=== PATIENT | male | born 1960 | race Caucasian/White ===

== ENCOUNTER → 2017-08-28 | Outpatient (CLI) | payer OTHER ==
[2017-08-28 10:15] VITALS: BP 140/83
[2017-08-28 10:23] LABS: URINE APPEARANCE CLOUDY; URINE COLOR DARK YELLOW
[2017-08-28 10:24] LABS: URINE BILIRUBIN NEGATIVE (NEGATIVE); URINE BLOOD TRACE (NEGATIVE); URINE GLUCOSE NEGATIVE (NEGATIVE); URINE KETONE 1+ (NEGATIVE); URINE LEUKOCYTE ESTERASE NEGATIVE (NEGATIVE); URINE MUCUS PRESENT (NOT PRESENT); URINE NITRATE NEGATIVE (NEGATIVE); URINE PROTEIN(semi-quant) 2+ mg/dL (NEGATIVE); URINE UROBILINOGEN NORMAL (NORMAL)
== END ==
LOC: LAB 09:31
PROVIDERS: Nurse Practitioner Family
DX: R30.0 Dysuria (principal); R09.89 Other specified symptoms and signs involving the circulatory and respiratory systems

== ENCOUNTER → 2017-08-28 | Outpatient (CLI) | payer OTHER ==
[~2017-08-28] VITALS: Ht 157.5 cm; Wt 72.7 kg
[2017-08-28 10:15] VITALS: BP 140/83
[2017-08-28 11:42] VITALS: BP 125/85
== END ==
LOC: AMSURD 10:19
DX: J11.1 Influenza due to unidentified influenza virus with other respiratory manifestations (principal)
CPT/HCPCS: J2405; J7030

== ENCOUNTER 2017-12-28 11:23 | Emergency (ER) | payer SELFPAY ==
[~2017-12-28] VITALS: Ht 157.5 cm; Wt 75.0 kg
[2017-12-28 11:54] LABS: EOS # 0.3 (0.04-0.40); EOS % 2.8 % (0.0-4.0); HEMATOCRIT 45.1 % (42.0-52.0); HEMOGLOBIN 15.6 g/dL (13.5-18.0); LYMPH# 1.9 (1.50-4.00); MEAN CELL VOLUME 93 fl (78-100); MEAN CORPUSCULAR HEMOGLOBIN 32 pg (27-31); MEAN CORPUSCULAR HGB CONC 35 g/dL (33-37); MONO # 1.3 (0.20-0.80); NEU # 7.5 (1.40-6.50); PLATELET COUNT 176 K/mm3 (130-400); RED BLOOD COUNT 4.84 M/mm3 (4.20-5.60); RED CELL DISTRIBUTION WIDTH 13.3 % (11.5-14.5)
[2017-12-28] MEDS ORDERED: CLEOCIN HC150 MG/CAP PO (13:46)
[2017-12-28] MEDS ORDERED: NORCO 325 MG-51 TA1 PO (13:46)
[2017-12-28 14:08] VITALS: BP 122/64
== END 2017-12-28 14:05 | disposition home or self-care (01) ==
LOC: ED 11:23
PROVIDERS: Family Medicine
DX: T78.3XXA Angioneurotic edema, initial encounter (principal); K04.7 Periapical abscess without sinus; K05.10 Chronic gingivitis, plaque induced; F17.200 Nicotine dependence, unspecified, uncomplicated

== ENCOUNTER → 2020-06-23 | Outpatient (CLI) | payer SELFPAY ==
[~2020-06-23] MED LIST: CLEOCIN HC150 MG/CAP PO; NORCO 325 MG-51 TA1 PO
== END ==
LOC: LAB 09:15
DX: J02.9 Acute pharyngitis, unspecified (principal); M79.10 Myalgia, unspecified site; R09.81 Nasal congestion; Z20.828 Contact with and (suspected) exposure to other viral communicable diseases

== ENCOUNTER 2021-02-14 14:32 | Emergency (ER) | payer OTHER ==
[~2021-02-14 14:32] MED LIST changes: -MOBIC15 M1 PO; -ZYRTEC10 M3 PO
[2021-02-14] MEDS ORDERED: ZYRTEC10 M3 PO (15:42)
[2021-02-14] MEDS ORDERED: MOBIC15 M1 PO (15:43)
[2021-02-14 18:33] LABS: PROTHROMBIN TIME 10.2 SECONDS (9.0-12.0)
[2021-02-14 18:47] VITALS: BP 122/83
== END 2021-02-14 19:18 | disposition short-term general hospital (02) ==
LOC: ED 14:32
PROVIDERS: Physician Assistant
DX: I50.1 Left ventricular failure, unspecified (principal); J90 Pleural effusion, not elsewhere classified; R74.8 Abnormal levels of other serum enzymes; Z87.891 Personal history of nicotine dependence
CPT/HCPCS: J1644; J1940; Q9967

== ENCOUNTER → 2021-02-14 | Outpatient (CLI) | payer SELFPAY ==
[~2021-02-14] MED LIST changes: +MOBIC15 M1 PO; +ZYRTEC10 M3 PO
[2021-02-14 13:43] LABS: HEMATOCRIT 41.7 % (42.0-52.0); MEAN CELL VOLUME 95 fl (78-100); MEAN CORPUSCULAR HEMOGLOBIN 32 pg (27-31); MEAN CORPUSCULAR HGB CONC 34 g/dL (33-37); MEAN PLATELET VOLUME 12.3 fl (7.4-10.4); PLATELET COUNT 189 K/mm3 (130-400); RED CELL DISTRIBUTION WIDTH 12.9 % (11.5-14.5); WHITE BLOOD COUNT 10.3 K/mm3 (4.8-10.8)
[2021-02-14 13:53] LABS: ALBUMIN 3.5 g/dL (3.5-5.0); NEUTROPHILS 56 % (42-75)
[2021-02-14 13:54] LABS: LYMPHOCYTE 27 % (20-51); MONOCYTE 15 % (3-10)
[2021-02-14 13:55] LABS: CALCIUM 8.8 mg/dL (8.3-10.5)
[2021-02-14 13:56] LABS: TOTAL PROTEIN 6.8 g/dL (6.4-8.3)
[2021-02-14 14:09] LABS: TROPONIN-I 0.12 ng/mL (<0.030)
== END ==
LOC: RAD 13:25
PROVIDERS: Nurse Practitioner
DX: R91.8 Other nonspecific abnormal finding of lung field (principal); J90 Pleural effusion, not elsewhere classified; I50.9 Heart failure, unspecified